=== PATIENT | male | born 1990 | race Two or more races ===

== ENCOUNTER 2018-11-12 09:56 | Emergency (ER) | payer OTHER ==
[~2018-11-12] VITALS: Ht 195.6 cm; Wt 72.1 kg
[2018-11-12] MEDS ORDERED: LEVE100023 PO (10:03)
--- NOTE | 2018-11-12 10:04 | NUR ---
PT BIB [facility] FROM HOME,SEIZURE WHILE IN BED, PT IS AAOX4, NOT IN RESPIRATORY DISTRESS, V/S STABLE, KEPT RESTED AND COMFORTABLE.
--- NOTE | 2018-11-12 10:05 | NUR ---
SEEN AND EXAMINED BY DR. ROBERT
[2018-11-12] MEDS ORDERED: LEVETIRACETAM (500MG) 1,000 MG in IV NS 0.9% 100 ML IV SCH (10:30)
--- NOTE | 2018-11-12 10:56 | NUR ---
IV removed. Catheter intact and site benign. Pressure and 4x4 applied to site. No bleeding noted. Patient discharged to home in stable condition. Written and verbal after care instructions given. Patient verbalizes understanding of instruction.
[2018-11-12 10:57] VITALS: BP 120/86
== END 2018-11-12 11:00 | disposition home or self-care (01) ==
LOC: ER 09:59
DX: G40.909 Epilepsy, unspecified, not intractable, without status epilepticus (principal)
CPT/HCPCS: 96365; 99283; A4606; J1953; J7030; Z7610